=== PATIENT | male | born 1960 | race Caucasian/White ===

== ENCOUNTER → 2017-04-13 | Outpatient (CLI) | payer BC ==
[~2017-04-13] MED LIST: IBUP-103 PO; PHENTAB PO
[2017-04-13 13:52] LABS: CHOLESTEROL/HDL RATIO 5.4
== END | disposition home or self-care (01) ==
LOC: C.LABBC 09:25
PROVIDERS: ATTEND Internal Medicine
DX: E78.5 Hyperlipidemia, unspecified (principal); Z11.59 Encounter for screening for other viral diseases

== ENCOUNTER → 2017-05-11 | Outpatient (CLI) | payer BC ==
[2017-05-11 15:23] LABS: CHOLESTEROL/HDL RATIO 4.9
== END | disposition home or self-care (01) ==
LOC: C.LABBC 09:30
PROVIDERS: ATTEND Physician Assistant
DX: E78.5 Hyperlipidemia, unspecified (principal)